=== PATIENT | female | born 1960 | race Caucasian/White ===

== ENCOUNTER 2016-05-08 13:09 | Emergency (ER) | payer MEDICARE, OTHER | END 2016-05-08 15:57 | disposition home or self-care (01) | LOC: ER 13:09 | DX: J11.00 Influenza due to unidentified influenza virus with unspecified type of pneumonia (principal); E87.1 Hypo-osmolality and hyponatremia; K21.9 Gastro-esophageal reflux disease without esophagitis; I10 Essential (primary) hypertension; F17.210 Nicotine dependence, cigarettes, uncomplicated; Z90.710 Acquired absence of both cervix and uterus; Z79.82 Long term (current) use of aspirin; Z79.899 Other long term (current) drug therapy; Z88.5 Allergy status to narcotic agent | CPT/HCPCS: 36415; 87502 ==